=== PATIENT | female | born 1960 | race Caucasian/White ===

== ENCOUNTER 2020-12-24 14:27 | Emergency (ER) | payer OTHER, SELFPAY ==
[2020-12-24 14:29] VITALS: BP 202/100; PULSE 71; RESP 20; TEMP 36.5; O2SAT 98; BMI 33.3
[2020-12-24 15:07] VITALS: BMI 27.8
--- NOTE | 2020-12-24 15:09 | [facility].EDGENADL ---
ED Disposition Clinical Impression: Atypical chest pain Migraine Qualifiers: Migraine type: without aura Status migrainosus presence: with status migrainosus Intractability: not intractable Qualified Code(s): G43.001 - Migraine without aura, not intractable, with status migrainosus Disposition: Home, Self-Care Condition on Discharge: Good Instructions: DI for Migraine, DI for Atypical Chest Pain Additional Instructions: Additional instructions for HEADACHE: See your physician as soon as possible for further evaluation. Return immediately if worsening headache, vomiting, problems with vision or speech, fever, numbness or weakness of the extremities, neck pain or stiffness. Additional instructions for CHEST PAIN: See your physician as soon as possible for further evaluation. Return immediately if worsening chest pain, vomiting, shortness of breath, fever, coughing of blood. Referrals: Vernon Cardenas [Primary Care Provider] - - Critical Care Critical Care Time: No Attestation: On , the high probability of a clinically significant, sudden or life threatening deterioration of the following system(s) required my full and direct attention, intervention and personal management. The time I documented below is in addition to time spent performing reported procedures but includes the following listed in this critical care notation. Medical Decision Making - Minh Inquiry Pt receiving controlled substance: No Vital Signs: 12/24/20 14:29 12/24/20 15:10 12/24/20 15:31 Temperature 97.7 F Temperature Source Oral Pulse Rate 75 72 Pulse Rate [Left Radial] 71 Respiratory Rate 20 16 16 Blood Pressure 188/99 H 134/63 Blood Pressure [Right Arm] 202/100 H Blood Pressure Mean 128 99 Blood Pressure Mean [Right Arm] 134 Blood Pressure Source [Right Arm] Automatic Cuff Blood Pressure Position [Right Arm] Sitting 02 Sat by Pulse Oximetry 98 99 98 Oxygen Delivery Method Room Air 12/24/20 16:46 Temperature Temperature Source Pulse Rate 89 Pulse Rate [Left Radial] Respiratory Rate 20 Blood Pressure 182/88 H Blood Pressure [Right Arm] Blood Pressure Mean 119 Blood Pressure Mean [Right Arm] Blood Pressure Source [Right Arm] Blood Pressure Position [Right Arm] 02 Sat by Pulse Oximetry 96 Oxygen Delivery Method - Lab Data Lab Results 12/24/20 15:06: WBC 8.9, RBC 5.04, Hgb 16.0, Hct 47.4 H, MCV 94.1, MCH 31.8 H, MCHC 33.7, RDW 13.1, Plt Count 253, MPV 9.4, Neut % (Auto) 84.3 H, Lymph % (Auto) 12.5, [place] % (Auto) 2.6, Eos % (Auto) 0.3, Baso % (Auto) 0.4, Neut # (Auto) 7.5, Lymph # (Auto) 1.1, [place] # (Auto) 0.2, Eos # (Auto) 0.0, Baso # (Auto) 0.0 12/24/20 15:06: Sodium 138, Potassium 3.8, Chloride 103, Carbon Dioxide 27, Anion Gap 11.8, BUN 22 H, Creatinine 0.50 L, Estimated Creat Clear 130, Estimated GFR 126, Est GFR ( Amer) 152, Glucose 168 H, Calcium 9.3, Total Bilirubin 0.6, AST 29, ALT 15, Alkaline Phosphatase 85, Total Protein 7.8, Albumin 4.9, Globulin 2.9, Albumin/Globulin Ratio 1.7 12/24/20 16:00: Troponin I < 0.01 Result diagrams: 12/24/20 15:06 12/24/20 15:06 Orders (Tests/Meds): ED MEDICATIONS Discontinued Medications Generic Name Dose Route Start Last Admin Trade Name Freq PRN Reason Stop Dose Admin Sodium Chloride 1,000 mls @ 999 mls/hr 12/24/20 15:15 12/24/20 15:14 Sod Chlor 0.9% 1000ml Bag IV 12/24/20 16:15 999 mls/hr .Q1H1M GAUTAM Administration Ondansetron HCl 4 mg 12/24/20 15:09 12/24/20 15:14 Ondansetron 4mg/2ml Vial IV 12/24/20 15:10 4 mg ONCE ONE Administration Prochlorperazine Edisylate 5 mg 12/24/20 15:41 12/24/20 15:51 Prochlorperazine 10mg/2ml Vial IV 12/24/20 15:42 5 mg ONCE ONE Administration Sumatriptan Succinate 6 mg 12/24/20 15:41 12/24/20 15:51 Sumatriptan 6mg/0.5ml Vial SQ 12/24/20 15:42 6 mg ONCE ONE Administration ORDERS Category Date Time Status Troponin I Q3H Lab 12/24/20 18:45 Stop Re
[2020-12-24 15:10] VITALS: BP 188/99; PULSE 75; RESP 16; O2SAT 99
[2020-12-24 15:16] LABS: Basophils % 0.4 % (0.1-2.0); Eosinophils % 0.3 % (0.1-12.0); Hematocrit 47.4 % (37.0-47.0); Lymphocytes # 1.1 K/mm3 (0.7-4.5); Lymphocytes % 12.5 % (10-50); Mean Corpuscular HGB Conc 33.7 g/dL (31.8-35.4); Mean Corpuscular Hemoglobin 31.8 pg (27.0-31.2); Mean Corpuscular Volume 94.1 fl (81-99); Mean Platelet Volume 9.4 fl (7.4-10.4); Monocytes # 0.2 K/mm3 (0.1-1.0); Monocytes % 2.6 % (1.7-9.3); Neutrophils # 7.5 K/mm3 (1.8-7.8); Neutrophils % 84.3 % (37.0-80.0); Platelet Count 253 K/mm3 (142-424); Red Blood Count 5.04 M/mm3 (4.20-5.40); Red Cell Distribution Width 13.1 % (11.5-17.5); White Blood Count 8.9 K/mm3 (4.8-10.8)
[2020-12-24 15:31] VITALS: BP 134/63; PULSE 72; RESP 16; O2SAT 98
[2020-12-24 15:37] LABS: Chloride 103 mmol/L (98-107); Potassium 3.8 mmoL/L (3.5-5.1); Sodium 138 mmol/L (136-145)
[2020-12-24 15:39] LABS: Blood Urea Nitrogen 22 mg/dl (7-17); Creatinine Clearance Estimated 130 mL/min (50-200); Estimated Glomerular Filt Rate 126 ml/min (>60); GFR (African American) 152 ML/MIN (>60)
[2020-12-24 15:40] LABS: Alanine Aminotransferase 15 U/L (12-78); Albumin Level 4.9 g/dl (3.5-5.0); Albumin/Globulin Ratio 1.7 (1.1-1.8); Alkaline Phosphatase 85 U/L (38-126); Anion Gap 11.8 mEq/L (5-15); Aspartate Amino Transferase 29 U/L (14-36); Bilirubin,Total 0.6 mg/dl (0.2-1.3); Calcium 9.3 mg/dl (8.4-10.2); Carbon Dioxide 27 mmol/L (22.0-30.0); Globulin 2.9 g/dL (1.3-3.2); Glucose 168 mg/dl (74-100); Total Protein,Serum 7.8 g/dl (6.3-8.2)
--- NOTE | 2020-12-24 15:42 | ECG_ITS ---
APPROVED REPORT Exam: Resting ECG HR:85 bpm ECG Measurements Heart Rate 85 AXES [place] 154 P 73 QRSd 80 QRS 61 QT 358 T 62 QTc 426 Conclusion Sinus rhythm with marked sinus arrhythmia with occasional premature ventricular complexes Otherwise normal ECG Electronically signed by : Gera Lopez, 12/27/2020 11:03:59
[2020-12-24 16:31] LABS: Troponin I < 0.01 ng/ml (0.00-0.034)
[2020-12-24 16:46] VITALS: BP 182/88; PULSE 89; RESP 20; O2SAT 96
[2020-12-24 17:13] VITALS: BP 110/74; PULSE 87; RESP 16; TEMP 36.6; O2SAT 98
== END 2020-12-24 17:41 | disposition home or self-care (01) ==
PROVIDERS: Emergency Provider Emergency Medicine; PCP Family Medicine
DX: G43.001 Migraine without aura, not intractable, with status migrainosus (principal); R07.89 Other chest pain
CPT/HCPCS: 36415; 80053; 84484; 85025; 93005; 96365; 96372; 96375; 99282; J2405